=== PATIENT | female | born 1950 | race Asian ===

== ENCOUNTER 2016-11-29 22:19 | Emergency (ER) | payer MEDICARE, OTHER ==
[~2016-11-29] VITALS: Ht 152.4 cm; Wt 66.4 kg
[2016-11-29] MEDS ORDERED: SODIUM CHLORIDE 0.9% 1,000 ML IV ONE (22:59)
[2016-11-29] MEDS ORDERED: ONDANSETRON 2MG/ML, 2ML IVPush ONE (23:00)
[2016-11-29] MEDS ORDERED: SODIUM CHLORIDE FLUSH 10ML SYR IVF ONE (23:00)
[2016-11-29] MEDS ORDERED: HYDROmorphone 1 MG/ML, 1ML IVPush PRN (23:00)
[2016-11-29] MEDS ORDERED: HYDROmorphone 1 MG/ML, 1ML ONE (23:21)
[2016-11-29] MEDS ORDERED: ONDANSETRON 2MG/ML, 2ML ONE (23:21)
[2016-11-29 23:39] LABS: ASPARTATE AMINO TRANSFERASE 22 U/L (15-37); BLOOD UREA NITROGEN 12 mg/dL (7-18)
[2016-11-30] MEDS ORDERED: LEVO100T5 PO (00:27)
[2016-11-30] MEDS ORDERED: GLIM4TAB2 PO (00:27)
[2016-11-30] MEDS ORDERED: ATOR20TA9 PO (00:28)
[2016-11-30] MEDS ORDERED: OMNIPAQUE 350 MG/ML, 100ML BOTTLE ONE (00:46)
[2016-11-30 01:11] VITALS: BP 167/88
== END 2016-11-30 01:21 | disposition home or self-care (01) ==
LOC: ED 23:59
DX: A08.4 Viral intestinal infection, unspecified (principal); N30.00 Acute cystitis without hematuria; E11.9 Type 2 diabetes mellitus without complications
CPT/HCPCS: 36415; 74177; 80053; 81001; 83605; 83690; 85025; 87086; 96361; 96374; 96375; 99285; J1170; J2405; J7030; Q9967

== ENCOUNTER → 2017-02-05 | Outpatient (CLI) | payer MEDICARE ==
[~2017-02-05] MED LIST: ATOR20TA9 PO; GLIM4TAB2 PO; LEVO100T5 PO
== END | disposition home or self-care (01) ==
LOC: CARD 10:39
PROVIDERS: ATTEND Family Medicine
DX: M54.5 Low back pain (principal); G62.9 Polyneuropathy, unspecified; M79.671 Pain in right foot
CPT/HCPCS: 95886; 95909

== ENCOUNTER → 2017-03-15 | Outpatient (CLI) | payer MEDICARE | LOC: CFH 09:12 | PROVIDERS: ATTEND Family Medicine | DX: M51.37 Other intervertebral disc degeneration, lumbosacral region (principal); M48.06 Spinal stenosis, lumbar region; M48.07 Spinal stenosis, lumbosacral region; M51.27 Other intervertebral disc displacement, lumbosacral region; M51.26 Other intervertebral disc displacement, lumbar region; M25.78 Osteophyte, vertebrae | CPT/HCPCS: 72148 ==

== ENCOUNTER → 2019-04-17 | Outpatient (CLI) | payer MEDICARE ==
[~2019-04-17] MED LIST changes: +ATOR20TA37 PO; -ATOR20TA9 PO; -GLIM4TAB2 PO; +GLIM4TAB4 PO
== END | disposition home or self-care (01) ==
LOC: CFH 07:57
PROVIDERS: ATTEND Family Medicine
DX: R91.1 Solitary pulmonary nodule (principal)
CPT/HCPCS: 71250

== ENCOUNTER → 2020-11-12 | Outpatient (CLI) | payer MEDICARE ==
[~2020-11-12] MED LIST changes: -GLIM4TAB4 PO; +GLIM4TAB8 PO
== END | disposition home or self-care (01) ==
LOC: CVU 14:29
PROVIDERS: ATTEND Family Medicine
DX: E11.9 Type 2 diabetes mellitus without complications (principal)
CPT/HCPCS: 93922